=== PATIENT | male | born 1970 | race African-American/Black ===

== ENCOUNTER 2021-09-27 01:16 | Day surgery (SDC) | payer BC, SELFPAY ==
[2021-09-18 08:25] VITALS: BMI 26.6
[2021-09-27 11:12] VITALS: BP 158/102; PULSE 88; RESP 18; TEMP 36.2; O2SAT 98; BMI 32.3
[2021-09-27] MEDS: LACTATED RINGERS 1,000 ML 150 ML IV CONT (11:21)
--- NOTE | 2021-09-27 11:24 | P.HP_ITS ---
History of Present Illness History of Present Illness Consent: Risks, benefits, and alternatives have been discussed and questions answered. Patient agrees to proceed with procedure. Chief complaint: GERD Narrative: Oswaldo Llamas is a 51 year old male with chronic gerd on omeprazole OTC but symptomatic, never had egd Review of Systems Constitutional: Constitutional: Denies headache(s) and Denies weakness Eyes: Eyes: Denies blurry vision ENT: Reports Normal hearing present, Denies headache(s) and Denies neck pain Cardiovascular: Cardiovascular: Denies chest pain and Denies dyspnea Respiratory: Respiratory: Denies dyspnea Gastrointestinal: Gastrointestinal: Reports no additional gastrointestinal complaints Genitourinary: Genitourinary: Denies dysuria Musculoskeletal: Musculoskeletal: Denies neck pain Integumentary/Breasts: Skin/Breast: Denies dry skin Neurologic: Reports Normal hearing present, Denies headache(s) and Denies wea kness Psychiatric: Psychiatric: Denies anxiety Endocrine: Endocrine: Denies change in body appearance Hematologic/Lymphatic: Hematologic/Lymphatic: Denies easy bleeding Allergic/Immunologic: Allergic/Immunologic: Denies urticaria PMFSH Past Medical History Medical History (Updated 09/27/21 @ 11:24 by Caden Cantu MD) Depression GERD (gastroesophageal reflux disease) Hypertension Social History Social History Smoking status: Never smoker Alcohol intake: current Alcohol use details: on occasion, not weekly Substance use: never Substance use type: does not use Living arrangements: with family Spiritual care concerns: No Meds Home Medications and Allergies Home Medications Medication Instructions Recorded Confirmed Type amlodipine 10 mg PO DAILY 09/18/21 09/18/21 History fluoxetine 20 mg PO DAILY 09/18/21 09/18/21 History Allergies Allergy/AdvReac Type Severity Reaction Status Date / Time No Known Allergies Allergy Verified 09/18/21 08:25 Vital Signs Vital Signs - 24 hr 09/27/21 11:12 Temperature 97.2 F L Pulse Rate 88 Respiratory Rate 18 Blood Pressure 158/102 H Pulse Oximetry 98 Exam Const: General: comfortable and no acute distress HENMT: General nose exam: Normal nares present Eyes: General: appearance normal, both eyes and all related structures Neck: Neck: no JVD Resp: Auscultation: clear to auscultation bilaterally Cardio: Rate: regular rate Rhythm: regular rhythm GI: Inspection: non-distended GI Palp: Yes Soft to palpation Skin: General skin exam: normal color Neuro: General: gait normal Speech: normal speech Extrem: General: normal to inspection Psych: Mental Status: mental status grossly normal Assessment and Plan Assessment and plan (1) GERD (gastroesophageal reflux disease): Code(s): K21.9 - Gastro-esophageal reflux disease without esophagitis Status: Acute Assessment and Plan: egd with bx, probably will give him a PPI prescription
--- NOTE | 2021-09-27 11:24 | WPDANESEPPF ---
Anes - Initial Pre Proc Eval Procedure: Operation Date: 09/27/21 12:45 Proposed Procedures p Esophagogastroduodenoscopy - Caden Cantu MD Date/Time: 09/27/21 11:24 Surgeon: Caden Cantu MD Pre Op Diagnosis: GERD Patient Data Age: 51 Gender: M Height: 1.68 m Weight: 91 kg Last Vital Signs Temp 36.2 C L 09/27/21 11:12 Pulse 88 09/27/21 11:12 Resp 18 09/27/21 11:12 BP 158/102 H 09/27/21 11:12 Pulse Ox 98 09/27/21 11:12 Allergies Allergy/AdvReac Type Severity Reaction Status Date / Time No Known Allergies Allergy Verified 09/18/21 08:25 Home Medications Medication Instructions Recorded Confirmed Type amlodipine 10 mg PO DAILY 09/18/21 09/18/21 History fluoxetine 20 mg PO DAILY 09/18/21 09/18/21 History Patient hx anesthesia problems: none Family hx anesthesia problems: none Results Review: All pre-operative results and documents have been reviewed as part of the pre-operative evaluation. [facility] Past Medical History Medical History Depression Hypertension Social History Social History Smoking status: Never smoker Alcohol intake: current Alcohol use details: on occasion, not weekly Substance use: never Substance use type: does not use Living arrangements: with family Spiritual care concerns: No Anes - Eval Final PreProcedure Day of Procedure 09/27/21 11:24 Patient weight: obese Heart: regular rate and rhythm Lungs: clear to auscultation Airway: Mallampati scale class II Neurological: alert and oriented Last oral intake: >/= 8 hours ASA classification: II Emergent: no Anesthetic plan: proceed Anesthesia type and monitoring: general GIVS and standard monitoring Results Review: All pre-operative results and documents have been reviewed as part of the pre-operative evaluation. Informed Consent: The patient's anesthetic plan and its attendant risks and benefits were discussed with the patient/family/POA. Questions were solicited and answers provided to the satisfaction of the patient/family/POA.
[2021-09-27 11:44] VITALS: BP 116/78; PULSE 86; RESP 18; O2SAT 99
[2021-09-27 11:54] VITALS: BP 130/94; PULSE 80; RESP 15; O2SAT 99
[2021-09-27 12:04] VITALS: BP 130/94; PULSE 85; RESP 18; O2SAT 98
== END 2021-09-27 12:14 | disposition home or self-care (01) ==
PROVIDERS: PCP Emergency Medicine; Visit Provider Internal Medicine Gastroenterology
PROC: 0DJ08ZZ Inspection of Upper Intestinal Tract, Via Natural or Artificial Opening Endoscopic (ICD-10-PCS; CPT 43235; principal; 2021-09-27 12:45)
DX: K21.00 Gastro-esophageal reflux disease with esophagitis, without bleeding (principal); K29.50 Unspecified chronic gastritis without bleeding; I10 Essential (primary) hypertension; F32.9 Major depressive disorder, single episode, unspecified; E66.9 Obesity, unspecified; Z68.32 Body mass index [BMI] 32.0-32.9, adult
CPT/HCPCS: 43239; 88305; J2704; J7120

== ENCOUNTER 2025-03-09 15:00 | Emergency (ER) | payer SELFPAY ==
[2025-03-09 15:01] VITALS: BP 155/116; PULSE 68; RESP 16; TEMP 36.4; O2SAT 98
--- NOTE | 2025-03-09 15:58 | ED.EYEPROB ---
HPI - Eye Problem General Chief complaint: Eye Problems <Hina Shipman PA-C - Last Filed: 03/09/25 16:14> Stated complaint: L eye swelling <Hina Shipman PA-C - Last Filed: 03/09/25 16:14> Time Seen by Provider: 03/09/25 17:28 <Hina Shipman PA-C - Last Filed: 03/09/25 16:14> Focused HPI: 55 y/o M with a hx of HTN, GERD presents emergency department for left eye irritation since this morning. Patient states he went to bed last night and normal state of health and woke up this morning at 9:00 a.m. with redness to his eye an a foreign body sensation. He reports associated blurry vision. He denies injury or trauma to his eye. He reports clear tearing. Denies matting. Denies fever. He does not wear contacts. GENERAL: Well-appearing, well-nourished, and in no acute distress. HEAD: Normocephalic, atraumatic. EYE: Left eye injected with mild edema to upper and lower lid. No pain with EOMs. No opthalmoplegia. No proptosis or chemosis. Palpebral conjunctiva erythematous. No obvious foreign body. CHEST: Clear to auscultation. ?No respiratory distress. HEART: Regular rate and rhythm.? NEURO: ?Alert and oriented x3. Patient screened in triage and initial orders placed.? ?Additional care and disposition to be based upon?diagnostic testing and treatment. <Hina Shipman PA-C - Last Filed: 03/09/25 16:14> Focused HPI: 55 y/o M with a hx of HTN, GERD presents emergency department for left eye irritation since this morning. Patient states he went to bed last night and normal state of health and woke up this morning at 9:00 a.m. with redness to his eye and a foreign body sensation. He reports associated blurry vision. He denies injury or trauma to his eye. He reports clear tearing. Denies matting. Denies fever. He does not wear contacts. GENERAL: Well-appearing, well-nourished, and in no acute distress. HEAD: Normocephalic, atraumatic. EYE: Left eye injected with mild edema to upper and lower lid. No pain with EOMs. No opthalmoplegia. No proptosis or chemosis. Palpebral conjunctiva erythematous. No obvious foreign body. CHEST: Clear to auscultation. ?No respiratory distress. HEART: Regular rate and rhythm.? NEURO: ?Alert and oriented x3. Patient screened in triage and initial orders placed.? ?Additional care and disposition to be based upon?diagnostic testing and treatment. <Riri Chicas PA-C - Last Filed: 03/09/25 18:21> Related Data Home medications: Home Medications ?Medication ?Instructions ?Recorded ?Confirmed ?Last Taken ?Type amlodipine 10 mg tablet 10 mg PO DAILY 09/18/21 09/18/21 Unknown History fluoxetine 20 mg capsule 20 mg PO DAILY 09/18/21 09/18/21 Unknown History <Hina Shipman PA-C - Last Filed: 03/09/25 16:14> Allergies/adverse reactions: Allergies Allergy/AdvReac Type Severity Reaction Status Date / Time No Known Allergies Allergy Verified 03/09/25 15:03 <Hina Shipman PA-C - Last Filed: 03/09/25 16:14> Review of Systems Review of Systems: All systems reviewed & are unremarkable except as noted in HPI and below <Riri Chicas PA-C - Last Filed: 03/09/25 18:21> PMFSH Past Medical History Medical History: Medical History (Updated 03/09/25 @ 18:15 by Riri Chicas PA-C) GERD (gastroesophageal reflux disease) Depression Hypertension <Hina Shipman PA-C - Last Filed: 03/09/25 16:14> Social History Social History: Social History Smoking status: Never smoker Alcohol intake: current Alcohol use details: on occasion, not weekly Substance use: never Substance use type: does not use Living arrangements: with family Spiritual care concerns: No <Hina Shipman PA-C - Last Filed: 03/09/25 16:14> Exam Narrative: GENERAL: Well-appearing, well-nourished, and in no acute distress. HEAD: Normocephalic, atraumatic. EYES: PERRLA and EOMI. Eye pressure is 12 on the left, 13 on the right. Visual acuity 20/50 left, 20/30 right. Conjunctival injection and tearing on the left. Fluorescein stain uptake with a small corneal abrasion noted. No foreign bodies noted EXTREMITIES: Normal range of motion. No edema. SKIN: Warm, dry, no rash. NEURO: No focal deficits. Alert and oriented x3. PSYCH: Normal mood and affect <Riri Chicas PA-C - Last Filed: 03/09/25 18:21> Course Vital Signs Vital signs: Vital Signs Temperature 97.6 F 03/09/25 15:01 Pulse Rate 68 03/09/25 15:01 Respiratory Rate 16 03/09/25 15:01 Blood Pressure 155/116 H 03/09/25 15:01 Pulse Oximetry 98 03/09/25 15:01 Oxygen Delivery Room Air 03/09/25 15:01 Temperature 97.6 F 03/09/25 15:01 Pulse Rate 68 03/09/25 15:01 Respiratory Rate 16 03/09/25 15:01 Blood Pressure 155/116 H 03/09/25 15:01 Pulse Oximetry 98 03/09/25 15:01 Oxygen Delivery Room Air 03/09/25 15:01 <Hina Shipman PA-C - Last Filed: 03/09/25 16:14> Vital Signs Temperature 97.6 F 03/09/25 15:01 Pulse Rate 68 03/09/25 15:01 Respiratory Rate 16 03/09/25 15:01 Blood Pressure 155/116 H 03/09/25 15:01 Pulse Oximetry 98 03/09/25 15:01 Oxygen Delivery Room Air 03/09/25 15:01 Temperature 97.6 F 03/09/25 15:01 Pulse Rate 68 03/09/25 15:01 Respiratory Rate 16 03/09/25 15:01 Blood Pressure 155/116 H 03/09/25 15:01 Pulse Oximetry 98 03/09/25 15:01 Oxygen Delivery Room Air 03/09/25 15:01 <ALMAS Mahoney Last Filed: 03/09/25 18:21> MDM - Eye Problem MDM Narrative Medical decision making narrative: Patient presents the emergency department for left eye redness, tearing, irritation. Patient has a small corneal abrasion on exam. Will be started on topical antibiotics. Instructed to follow-up with ophthalmology. He was given warnings to return to the ER <Riri Chicas PA-C - Last Filed: 03/09/25 18:21> Differential Diagnosis Differential diagnosis: Likely corneal abrasion and conjunctivitis <ALMAS Mahoney Last Filed: 03/09/25 18:21> Critical Care Time Critical Care Time Critical Care Time: No <Riri Chicas PA-C - Last Filed: 03/09/25 18:21> Discharge Plan Discharge Clinical Impression: Corneal abrasion Qualifiers: Encounter type: initial encounter Laterality: left Qualified Code(s): S05.02XA - Injury of conjunctiva and corneal abrasion without foreign body, left eye, initial encounter <ALMAS Alas Last Filed: 03/09/25 16:14> Patient Disposition: Home <ALMAS Alas Last Filed: 03/09/25 16:14> Condition: Stable <ALMAS Alas Last Filed: 03/09/25 16:14> Instructions: Antibiotic Form, Corneal Abrasion (ED) <ALMAS Alas Last Filed: 03/09/25 16:14> Additional Instructions: Return to the emergency department if you experience fever, redness and swelling around your eye, worsening visual changes, or any other symptoms that are concerning to you Instill 1 drop into the left eye 4 times daily for 5 days Follow-up with ophthalmology. [facility] if needed <ALMAS Alas Last Filed: 03/09/25 16:14> Patient Language: Azeri <ALMAS Alas Last Filed: 03/09/25 16:14> Prescriptions: New ofloxacin 0.3 % drops 1 drp LEFT EYE QID 5 Days Qty: 10 0RF No Action amlodipine 10 mg tablet 10 mg PO DAILY fluoxetine 20 mg capsule 20 mg PO DAILY pantoprazole [Protonix] 40 mg tablet,delayed release (DR/EC) 40 mg PO QAM Qty: 30 11RF <Hina Shipman PA-C - Last Filed: 03/09/25 16:14> Follow-up/Referrals: Gordon Sauceda MD [Physician] - <Hina Shipman PA-C - Last Filed: 03/09/25 16:14>
[2025-03-09] MEDS: TETRACAINE HCL 0.5% OPHTH SOLN 4 ML BTL 1 DROP EACH EYE (17:29)
[2025-03-09] MEDS: FLUORESCEIN SOD 1 MG/STRIP EACH EYE (17:29)
--- OUTSIDE RECORDS SUMMARY | 2025-03-09 17:42 | XMS_ITS | Continuity of Care Document ---
Author Organization [facility] Address [address] [place] [address] Phone Care Team Providers Care Briquetter Operator Name Role Phone Gordon Sauceda MD Unavailable Unavailable Allergies, Adverse Reactions, Alerts Substance Reaction Status Criticality No Known Allergies Active No Inform ation Medications Medication Instructions Dosage Effective Dates (start - stop) Status Comments Prozac 20 mg capsule take 1 Capsule by o ral route every day in the morning 20 MG - Active omeprazole 20 mg capsule,delayed release take 1 capsule by oral route every day before a meal 20 MG - Active Norvasc 10 mg tablet take 1 tablet by or al route every day 10 MG - Active Mobic 15 mg tablet take 1 tablet by ora l route every day - Active Procedures Procedure Date PREV VISIT, NEW, AGE 40-64 OFFICE/OUTPATIENT VISIT, [facility] Advance Directives Directive Yes / No Effective Date File Name No Information Encounters Encounter Description Practice Location Reason(s) For Visit Diagnoses Date Provider Providers Copied on Encounter PREV VISIT, NEW, AGE 40-64 [facility], [address] [place], [id number], [place] tel:[phone] [facility] physical (chief complaint) Encounter for general adult medical exam w abnormal findingsGERD w/o esophagitisGenerali zed Anxiety DisorderEssential (primary) hypertensionPain in unspecified foot May- 1 Sohail Leyva. [address] [employer] [facility] [place], [id number] , [place]. tel:[phone] Family History Family Member Type Diagnosis Age At Onset Sister Problem Diabetes mellitus Brother Problem Alive and well Father Problem of 60s due to multiple condition, HTN, gout Mother Problem of 55 due to DM Payers Payer name Insurance type Covered green party ID Rabia irby(s) No Information Social History Type Description Quantity Date Captured Comments Alcohol Use Details beer & wine Caffeine Use Details Unknown Tobacco Use Status Current non-smoker Smoking Status Never smoker Non-Smoking Tobacco Use Details : No Details Available : No Details Available Sex Male Vital Signs Date / Time: Height Weight BMI Pulse Rate Blood Pressure Temperature Respiratory Rate Body Surface Area Head Circumference BMI percentile Pulse Ox Inhaled Ox 9:45 AM 66.00 in 200.20 lbs 32.3 1 kg/m eter (2) 89 /min 160/100 mm[Hg] 97.9 F 16 /min Chief Complaint And Reason For Visit From encounter dated '05/28/2021 09:42'. physical (chief complaint). Description: Pt needs annual physical Pt has chronic anxiety and depression. Pt used to take prozac and did well but he has not been on it for a while. Pt c/o feeling anxious and depressed. Pt denies any suicidal or homicidal thought Pt denies any crying spells Pt has HTN Pt used to take lisinopril/hctz but he has not been on it for a while .His bp is high. Pt denies any chest pain or headache pt has chronic GERD pt used to take omeprazole daily but he has not been on it for a while Pt has daily GERD. Pt denies any abd pain or weight loss. Pt denies any early satiety,, nausea, vomiting. Pt c/o chronic bilateral heel pain for several years Pt denies any injury. Ptnotices radiation of pain to both legs from the heel area. Pt denies any rest of foot pain .Pt denies any neuropathy ,Pt denies any calf pain. Pt also has low carlota pain chronically. Pt denies any sciatica or any loss of bowel or bladder control. Pt denies any saddle area paresthesia. Pt states that his heel pain occurs throughout the day, but activity makes the pain worse, which is sharp Pt states that the pain is bad when he walk all day at work. pt denies any swelling or redness or warmth Plan Of Treatment Date Type Action Status Referral Ordered: [facility] -Podiatric Medicine & Surgery Service Providers : Home Health Aide (related to Pain in unspecified foot) ordered Referral Referred To: [facility] [facility],[address] [place], [place], [phone] Ordered: Referrals: Podiatric Medicine & Surgery Service Providers : Home Health Aide. [facility]. Evaluate and treat ordered Referral Ordered: OPERATIVE UPPER GI ENDOSCOPY ordered History Of Present Illness Encounter Date Complaint History Of Prese nt Illness physical Pt needs annual physical Pt has chronic anxiety and depression. Pt used to take prozac and did well but he has not been on it for a while. Pt c/o feeling anxious and depressed. Pt denies any suicidal or homicidal thought Pt denies any crying spells Pt has HTN Pt used to take lisinopril/hctz but he has not been on it for a while .His bp is high. Pt denies any chest pain or headache pt has chronic GERD pt used to take omeprazole daily but he has not been on it for a while Pt has daily GERD. Pt denies any abd pain or weight loss. Pt denies any early satiety,, nausea, vomiting. Pt c/o chronic bilateral heel pain for several years Pt denies any injury. Pt notices radiation of pain to both legs from the heel area. Pt denies any rest of foot pain .Pt denies any neuropathy ,Pt denies any calf pain. Pt also has low carlota pain chronically. Pt denies any sciatica or any loss of bowel or bladder control. Pt denies any saddle area paresthesia. Pt states that his heel pain occurs throughout the day, but activity makes the pain worse, which is sharp Pt states that the pain is bad when he walk all day at work. pt denies any swelling or redness or warmth Instructions Date Instruction Additional Infor mation No Information Assessments Type Assessment Date assessment Encounter for general adult medi brant exam w abnormal findings assessment GERD w/o esophagitis assessment Generalized Anxiety Disorder May assessment Essential (primary) hypertension assessment Pain in unspecified foot 2020 Mental Status Date Cognitive Assessment Orientation - [place] ed to time, place, person, situation.
[2025-03-09] MEDS: OFLOXACIN 0.3% OPHTH SOLN 5 ML BTL 1 DROP LEFT EYE (18:54)
[2025-03-09 18:58] VITALS: BP 143/94; PULSE 71; RESP 16; TEMP 36.3; O2SAT 98
== END 2025-03-09 18:59 | disposition home or self-care (01) ==
PROVIDERS: Emergency Provider Physician Assistant
DX: S05.02XA Injury of conjunctiva and corneal abrasion without foreign body, left eye, initial encounter (principal); X58.XXXA Exposure to other specified factors, initial encounter; I10 Essential (primary) hypertension; K21.9 Gastro-esophageal reflux disease without esophagitis
CPT/HCPCS: 99283; A9270